=== PATIENT | female | born 1940 | race African-American/Black ===

== ENCOUNTER 2022-04-16 05:55 | Emergency (ER) | payer MEDICARE, OTHER ==
[~2022-04-16] VITALS: Ht 172.7 cm; Wt 82.0 kg
[~2022-04-16 05:55] MED LIST: AMLO10TA80 PO; ASPI-864 PO; LABE200T9 PO; POTA-194 PO; VALS1TAB80 PO
[2022-04-16 11:25] VITALS: BP 137/83
== END 2022-04-16 11:25 | disposition home or self-care (01) ==
LOC: ER 05:55
DX: S09.8XXA Other specified injuries of head, initial encounter (principal); I11.9 Hypertensive heart disease without heart failure; E78.00 Pure hypercholesterolemia, unspecified; W01.0XXA Fall on same level from slipping, tripping and stumbling without subsequent striking against object, initial encounter; Y93.89 Activity, other specified; Y92.89 Other specified places as the place of occurrence of the external cause; Y99.9 Unspecified external cause status; Z95.5 Presence of coronary angioplasty implant and graft; Z79.82 Long term (current) use of aspirin; Z98.890 Other specified postprocedural states
CPT/HCPCS: 99284

== ENCOUNTER 2023-07-17 14:51 | Emergency (ER) | payer OTHER ==
[~2023-07-17] VITALS: Ht 172.7 cm; Wt 81.6 kg
[2023-07-17 15:05] VITALS: BP 117/77; PULSE 84; RESP 16; TEMP 98.5; O2SAT 98
[2023-07-17] MEDS ORDERED: NAPROXEN 375MG TABLET PO ONE (17:45)
[2023-07-17] MEDS ORDERED: NIRM1TAB PO (18:40)
[2023-07-17] MEDS ORDERED: NAPR375T5 MT (18:40)
== END 2023-07-17 18:57 | disposition home or self-care (01) ==
LOC: ER 14:51
DX: U07.1 COVID-19 (principal); I10 Essential (primary) hypertension; I25.2 Old myocardial infarction; I25.10 Atherosclerotic heart disease of native coronary artery without angina pectoris; Z98.890 Other specified postprocedural states
CPT/HCPCS: 99284; 71045; 87426; C9803